=== PATIENT | female | born 1965 | race Two or more races ===

== ENCOUNTER 2024-09-30 09:52 | Outpatient (RCR) | payer MEDICAID, SELFPAY | END 2024-10-21 23:59 | disposition home or self-care (01) | LOC: SCTC 09:52 | PROVIDERS: PCP Specialist; Referring Provider Nurse Practitioner Primary Care; Visit Provider Nurse Practitioner Family | DX: Z08 Encounter for follow-up examination after completed treatment for malignant neoplasm (principal); Z85.3 Personal history of malignant neoplasm of breast; Z90.11 Acquired absence of right breast and nipple; Z92.21 Personal history of antineoplastic chemotherapy | CPT/HCPCS: 99212; G0463 ==

== ENCOUNTER → 2024-10-28 | Outpatient (CLI) | payer MEDICAID, SELFPAY ==
--- NOTE | 2024-10-28 13:40 | XR_ITS ---
Examination: Bone densitometry Date and time of exam:October 28, 2024 1358 hrs. Indications: Hysterectomy age 51 diagnosis breast cancer Technique: Lumbar spine and hip total bone mineralization values of an calculated. Peak reference and age match control results have been displayed. Findings: Lumbar spine total bone mineralization is0.809 gm/cm2. This is 2.2 standard deviations below peak reference. This is 0.9 standard deviations below age-matched controls. Hip total bone mineralization is 0.864 gm/cm2 This is 0.7 standard deviations below peak reference. This is 0.1 standard deviations above age-matched controls Impression: There is osteopenia based on lumbar spine measurements. There is osteopenia based on hip measurements
== END | disposition home or self-care (01) ==
LOC: CDIM 13:16
PROVIDERS: PCP Specialist; Referring Provider Nurse Practitioner Family; Visit Provider Nurse Practitioner Family
DX: M85.89 Other specified disorders of bone density and structure, multiple sites (principal); C50.511 Malignant neoplasm of lower-outer quadrant of right female breast
CPT/HCPCS: 77080

== ENCOUNTER → 2024-12-11 | Outpatient (CLI) | payer MEDICAID, SELFPAY ==
--- NOTE | 2024-12-11 08:45 | XR_ITS ---
Examination: Screening digital mammography, bilateral Computer aided detection 3-D breast Tomosynthesis, bilateral Date and time of exam: December 11, 2024 0843 hours Compared to mammograms dating to July 19, 2019 Indication: Screening Technique: Nonmagnified MLO, CC views of the breasts to been obtained, reconstructed from 3-D Tomosynthesis images. R2 computer aided detection program utilized for evaluation of suspicious masses and/or abnormal calcifications. 3-D Tomosynthesis images obtained. Findings: The breasts are heterogeneously dense, which may obscure small masses Architectural distortion and skin retraction right breast are again depicted, consistent with patient's history of treated right breast cancer 10 mm focal asymmetry upper right breast posterior depth on the MLO view, 8.2 cm from the nipple, not depicted on the prior studies Impression: BI-RADS Category 0: Incomplete: Need additional imaging evaluation 10 mm focal asymmetry upper right breast posterior depth on the MLO view, 8.2 cm from the nipple, recommend follow-up spot tomographic views upper outer right breast posterior depth as well as bilateral breast sonography to complete the workup.
== END | disposition home or self-care (01) ==
LOC: CDIM 08:31
PROVIDERS: PCP Specialist; Referring Provider Nurse Practitioner Family; Visit Provider Nurse Practitioner Family
DX: Z12.31 Encounter for screening mammogram for malignant neoplasm of breast (principal); N64.89 Other specified disorders of breast; C50.511 Malignant neoplasm of lower-outer quadrant of right female breast
CPT/HCPCS: 77063; 77067

== ENCOUNTER → 2025-01-20 | Outpatient (CLI) | payer MEDICAID, SELFPAY ==
--- NOTE | 2025-01-20 10:30 | XR_ITS ---
Examination: Breast ultrasound complete, bilateral Date and time of exam: January 20, 2025 1041 hours INDICATIONS: Mammogram December 11, 2024 10 mm focal asymmetry upper right breast posterior depth MLO view Technique: Real-time grayscale ultrasonographic imaging bilateral breasts, including all 4 quadrants as well as nipple retroareolar and axillary regions. Findings: Sonographic images right breast 12:00 nodule circumscribed 9 x 6 mm Scar formation right breast 3:00 position Sonographic images left breast 10:00 cyst 4 x 5 mm Retroareolar cyst 5 x 6 mm No solid nodules IMPRESSION: BI-RADS Category 3: Probably benign findings One additional 6 month right breast sonogram follow-up is needed to document stability of 12:00 nodule described above
--- NOTE | 2025-01-20 10:30 | XR_ITS ---
Examination: Diagnostic digital mammography, unilateral, right Computer aided detection 3-D breast Tomosynthesis, unilateral Date and time of exam: January 20, 2025 1059 hours INDICATIONS: Mammogram December 11, 2024 10 mm focal asymmetry upper right breast posterior depth on the MLO view Technique: Nonmagnified MLO, CC views of the right breast have been obtained, reconstructed from 3-D Tomosynthesis images. R2 computer aided detection program utilized for evaluation of suspicious masses and/or abnormal calcifications. 3-D Tomosynthesis images obtained. Findings: The breast is heterogeneously dense, which may obscure small masses Focal asymmetry remains upper right breast on the MLO view Impression: BI-RADS category 3: Probably benign findings One additional 6 month right mammogram follow-up is needed
== END | disposition home or self-care (01) ==
PROVIDERS: PCP Family Medicine; Referring Provider Specialist; Visit Provider Specialist
DX: R92.331 Mammographic heterogeneous density, right breast (principal); N63.15 Unspecified lump in the right breast, overlapping quadrants
CPT/HCPCS: 76641; 77061; 77065; G0279

== ENCOUNTER 2025-04-02 09:56 | Outpatient (RCR) | payer MEDICAID, SELFPAY | END 2025-04-22 23:59 | disposition home or self-care (01) | LOC: SCTC 09:56 | PROVIDERS: PCP Specialist; Referring Provider Family Medicine; Visit Provider Nurse Practitioner Family | DX: Z08 Encounter for follow-up examination after completed treatment for malignant neoplasm (principal); Z85.3 Personal history of malignant neoplasm of breast; Z90.11 Acquired absence of right breast and nipple; Z92.21 Personal history of antineoplastic chemotherapy; Z92.3 Personal history of irradiation; M85.80 Other specified disorders of bone density and structure, unspecified site | CPT/HCPCS: 99212; G0463 ==

== ENCOUNTER 2025-07-02 09:03 | Outpatient (RCR) | payer MEDICAID, SELFPAY | END 2025-07-23 23:59 | disposition home or self-care (01) | LOC: SCTC 09:03 | PROVIDERS: PCP Physician Assistant; Referring Provider Physician Assistant; Visit Provider Nurse Practitioner Family | DX: Z08 Encounter for follow-up examination after completed treatment for malignant neoplasm (principal); Z85.3 Personal history of malignant neoplasm of breast; Z90.11 Acquired absence of right breast and nipple; Z92.3 Personal history of irradiation; Z92.21 Personal history of antineoplastic chemotherapy; N64.89 Other specified disorders of breast; M85.80 Other specified disorders of bone density and structure, unspecified site | CPT/HCPCS: 36415; 99212; G0463 ==